=== PATIENT | male | born 1945 | race Caucasian/White ===

== ENCOUNTER 2019-11-01 16:03 | Emergency (ER) | payer MEDICARE ==
[2019-11-01 16:20] VITALS: BP 143/94
[2019-11-01] MEDS ORDERED: LISINOP/HCTZ1 TAB PO (16:36)
[2019-11-01] MEDS ORDERED: EXCEDRI2 PO (16:37)
== END 2019-11-01 17:35 | disposition left against medical advice (07) ==
LOC: ED 16:03 → LWOBS 17:35
DX: Z53.21 Procedure and treatment not carried out due to patient leaving prior to being seen by health care provider (principal)

== ENCOUNTER 2021-08-30 14:02 | Observation (INO) | payer MEDICARE ==
[~2021-08-30] VITALS: Ht 175.3 cm; Wt 71.0 kg
[~2021-08-30 14:02] MED LIST: EXCEDRI2 PO; LISINOP/HCTZ1 TAB PO
--- NOTE | 2021-08-30 15:30 | NUR ---
PATIENT TO ROOM VIA WHEELCHAIR BEDSIDE TRIAGE COMPLETED.
--- NOTE | 2021-08-30 16:30 | NUR ---
PT SITTING IN RM AWAITING RESULTS. CALL LIGHT WITHIN REACH.
[2021-08-30 16:34] LABS: HEMATOCRIT 40.9 % (39.0-50.0); HEMOGLOBIN 13.3 g/dl (14.0-18.0); IMMATURE GRANULOCYTES 0.7 % (0.0-5.0); MEAN CELL VOLUME 95.1 fL CALC (80.0-100.0); MEAN CORPUSCULAR HGB 30.9 pG CALC (26.0-32.0); MEAN CORPUSCULAR HGB CONC 32.5 g/dL CAL (32.0-36.0); NEUT# 11.76 thou/uL (1.82-7.42); RED BLOOD COUNT 4.3 mill/uL (4.70-6.10); RED CELL DISTRI WIDTH 11.9 % (11.5-15.5)
[2021-08-30 16:41] LABS: ALBUMIN 4.2 g/dL (3.2-5.0); ALKALINE PHOSPHATASE 121 u/l (38-126); ANION GAP 17 (6-22 (CALC)); BILIRUBIN, TOTAL 0.7 mg/dL (0.0-1.4); BUN 30 mg/dL (8-23); BUN/CREATININE RATIO 23 (12-20 (CALC)); CARBON DIOXIDE 24 mmol/l (22-30); CHLORIDE 100 mmol/l (95-108); CREATININE 1.3 mg/dL (0.7-1.3); GFR 54 ML/MIN (>=60 (CALC)); GFR FOR AFR.AMER. > 60 ML/MIN (>=60 (CALC)); POTASSIUM 2.9 mmol/l (3.5-5.1); SGOT/AST 23 u/l (19-48); SODIUM 138 mmol/l (137-146); TOTAL PROTEIN 7.8 g/dL (6.3-8.2)
--- NOTE | 2021-08-30 17:30 | NUR ---
PT SITTING IN RM AWAITING RESULTS AT THIS TIME. NO NEEDS OR CONCERNS. CALL LIGHT WITHIN REACH.
--- NOTE | 2021-08-30 18:30 | NUR ---
PT SITTING IN RM AWAITING RESULTS. CALL LIGHT WITHIN REACH.
--- NOTE | 2021-08-30 19:30 | NUR ---
PT SITTING IN RM AWAITING ADMISSION AT THIS TIME. CALL LIGHT WITHIN REACH.
[2021-08-30] MEDS ORDERED: SIMVASTATIN5 MG PO (19:42)
[2021-08-30] MEDS ORDERED: ASPIRIN 81 LOW81 MG (19:42)
[2021-08-30] MEDS ORDERED: PERCOCET 5/321 COMBO PO (19:43)
--- NOTE | 2021-08-30 20:10 | NUR ---
REPORT GIVEN TO EZEQUIEL MENEZES AT THIS TIME FOR ADMISSION. ALEXANDRA HALE WILL BE TAKING PT TO THE FLOOR.
[2021-08-30 21:04] VITALS: BP 117/71
--- NOTE | 2021-08-30 21:04 | NUR ---
PT ARRIVED TO UNIT VIA WHEELCHAIR ACCOMPAINED BY ER STAFF. PT ALERT AND ORIENTED X4. ADMITTED WITH CELLULITIS TO RIGHT HAND, HAND IS RED, WARM AND PAINFUL TO TOUCH, HAS EDEMA NOTED. PT STATES HE HAD SIMILAR SYMPTOMS 2 YEARS AGO AFTER SPIDER BITE ON OTHER HAND. 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 IV SITE INFILTRATED, WILL START A NEW ONE. PT C/O PAIN IN RIGHT HAND 5/10, ELEVATED HAND ON PILLOWS, WILL MEDICATE FOR PAIN. FROZEN DINNER PROVIDED. PT ORIENTED TO ROOM AND CALL LIGHT SYSTEM. DISCUSSED POC AND SAFETY PRECAUTIONS. PT VERBALIZED UNDERSTANDING. CALL LIGHT WITHIN REACH. WILL CONTINUE TO MONITOR.
--- NOTE | 2021-08-30 21:05 | NUR ---
PT TO FLOOR VIA W/C WITH MONITOR AND IV NS INFUSING/ROCEPHIN STARTED. UPON ARRIVAL TO FLOOR PT C/O LEFT AC PAIN...SITE SWOLLEN TENDER. NURSE EZEQUIEL NOTIFIED AND IV STOPPED. PRO-CALCITONIN ELEVATED AND WAS CALLED TO ME A CRITICAL I WAS LEAVING WITH THE PT. CRIT RELAYED TO EZEQUIEL. PT ASSISTED TO BED AND MADE COMFORTABLE.
--- NOTE | 2021-08-30 21:20 | NUR ---
NURSING LUNCH COUNTER MANAGER NOTIFIED TO GET MAGNESIUM TO TAKE TO FLOOR
[2021-08-31] VITALS: BP 121/65
--- NOTE | 2021-08-31 00:17 | NUR ---
PT C/O PAIN IN RIGHT HAND. MEDICATED WITH PRN ULTRAM AT THIS TIME. PT DENIES ANY OTHER CURRENT WANTS OR NEEDS. CALL LIGHT WITHIN REACH. WILL CONTINUE TO MONITOR.
--- NOTE | 2021-08-31 03:49 | NUR ---
PT C/O RIGHT HAND PAIN. MEDICATED WITH PRN LORTAB. PT HAS HAND ELEVATED ON PILLOWS. IVF INFUSING WITHOUT DIFFICULTY. PT DENIES ANY OTHER CURRENT WANTS OR NEEDS. CALL LIGHT WITHIN REACH. WILL CONTINUE TO MONITOR.
[2021-08-31 04:00] VITALS: BP 122/58
[2021-08-31 05:51] LABS: HEMATOCRIT 35.4 % (39.0-50.0); HEMOGLOBIN 11.5 g/dl (14.0-18.0); MEAN CELL VOLUME 95.4 fL CALC (80.0-100.0); MEAN CORPUSCULAR HGB CONC 32.5 g/dL CAL (32.0-36.0); RED BLOOD COUNT 3.71 mill/uL (4.70-6.10); RED CELL DISTRI WIDTH 11.7 % (11.5-15.5)
[2021-08-31 06:12] LABS: ANION GAP 16 (6-22 (CALC)); BUN 26 mg/dL (8-23); BUN/CREATININE RATIO 23 (12-20 (CALC)); CARBON DIOXIDE 21 mmol/l (22-30); CHLORIDE 105 mmol/l (95-108); CREATININE 1.1 mg/dL (0.7-1.3); GFR > 60 ML/MIN (>=60 (CALC)); GFR FOR AFR.AMER. > 60 ML/MIN (>=60 (CALC)); MAGNESIUM 2.1 mg/dL (1.6-2.3); POTASSIUM 3.4 mmol/l (3.5-5.1); SODIUM 139 mmol/l (137-146)
[2021-08-31 08:08] VITALS: BP 109/64
--- NOTE | 2021-08-31 08:10 | NUR ---
ASSISTED PATIENT TO SIT IN THE RECLINER AND PATIENT WAS UNSTEADY ON FEET. ASSESSMENT DONE. PATIENT STATED PAIN IN RIGHT ARM. RIGHT ARM IS HOT TO THE TOUCH AND REDNESS NOTED. MEDICATED PATIENT WITH ULTRAM. TELE IN PLACE. PATIENT DENIES ANY OTHER NEEDS AT THIS TIME. SAFETY PRECAUTIONS REINFORCED AND CALL LIGHT IN REACH.
--- NOTE | 2021-08-31 10:29 | NUR ---
S: ERIC ROBERTO is a 76 M who presents with cellulitis of right hand. He has a history of hypertension. All medications in patient's chart were reviewed. O: VS: BP 109/64 mmHG, P 83 beats/minute, RR 20 breaths/minute, T 98.4F W 71 kg, HT 69 inches, Scr=1.1 mg/dL, CrCl= 58.3 ml/min> A: Blood culture from 08/30/2021 is pending. P: Patient is on Rocephin 1 G IV Q24H. Start Vancomycin 750 MG IV BID @ 0900. Check trough 09/01/2021 @ 0830. Goal for trough is 10-15 mcg/mL. Pharmacy will follow and or advise on antibiotics use as needed.
[2021-08-31 10:30] VITALS: BP 103/56
--- NOTE | 2021-08-31 12:00 | NUR ---
PATIENT IS SITTING IN THE RECLINER WITH RIGHT ARM ELEVATED. PATIENT DENIES NEEDS AT THIS TIME. CALL LIGHT IN REACH.
[2021-08-31 15:51] VITALS: BP 124/61
--- NOTE | 2021-08-31 16:00 | NUR ---
PATIENT STATED PAIN IN RIGHT ARM. MEDICATED PATIENT WITH OXYCODONE. PATIENT DENIES ANY OTHER NEEDS AT THIS TIME. CALL LIGHT IN REACH.
[2021-08-31 19:00] VITALS: BP 104/57
--- NOTE | 2021-08-31 20:19 | NUR ---
190-REPORT RECEIVED FROM DAYSHIFT NURSE VIA SBAR FORMAT; FOUND PATIENT RESTING IN BED, WATCHING TV, A&OX4, C/O PAIN TO RIGHT HAND, SWOLLEN, HOT TO TOUCH, EDUCATED ABOUT MED SCHEDULE, VOICES UNDERSTANDING, NO S/S OF DISTRESS NOTED, ENCOURAGED TO CALL IF NEEDED, VERBALIZES UNDERSTANDING, BSC AT REACH AND ALL NEEDED SUPPLIES AT BEDSIDE. 2020-MEDICATED WITH TYLENOL FOR PAIN TO RIGHT HAND, OXYCODONE NOT DUE YET UNTIL 2199. WILL FOLLOW UP WITH REASSESSMENT. PT STATES HAD X10 BOUTS OF DIARRHEA TODAY, EDUCATED ABOUT ABX SIDE EFFECTS, FLORASTOR GIVEN, WILL FOLLOW UP WITH REASSESSMENT, CALL RODRIGUEZ AT REACH AND BSC. ENCOURAGED TO CALL FOR ASSISTANCE, VOICES UNDERSTANDING. NO OTHER NEEDS VOICED.
--- NOTE | 2021-08-31 22:10 | NUR ---
MEDICATED WITH OXYCODONE FOR PAIN TO RIGHT HAND, RATES IT AT 10/10, FACIAL GRIMACE NOTED, ELEVATED R HAND ON A PILLOW, WILL FOLLOW UP CLOSELY, CALL RODRIGUEZ AT REACH.
[2021-09-01] VITALS: BP 91/54
--- NOTE | 2021-09-01 02:36 | NUR ---
PATIENT IS RESTING IN BED, QUIETLY, NO PAIN OR NEEDS REPORTED, CALL RODRIGUEZ AT REACH.
[2021-09-01 04:00] VITALS: BP 110/51
--- NOTE | 2021-09-01 04:25 | NUR ---
pt c/o right hand pain, rates it at 10/10, facial grimacing noted, elevated on a pillow, cold compressor applied with a skin barrier. Patient states, "this is the worst pain I've had." will follow up with pain reassessment.
--- NOTE | 2021-09-01 04:30 | NUR ---
Medicated per MD orders, will follow up with pain reassessment.
--- NOTE | 2021-09-01 04:39 | NUR ---
PT REMOVED COLD COMPRESSOR, STATES "IT HURTS MORE WITH IT."
--- NOTE | 2021-09-01 05:17 | NUR ---
PATIENT STATES "PAIN IS A LITTLE BIT BETTER." RATES IT AT 8/10, WAS 10/10, ACHING/THROBBING.
--- NOTE | 2021-09-01 06:19 | NUR ---
PT C/O RIGHT HAND PAIN, 8/10 THROBBING, SHARP, MEDICATED WITH TYLENOL PER MD ORDERS, ASSISTED TO BSC FOR A BM, PATIENT CONTINUED HAVING FREQUENTS BOUTS OF DIARRHEA ALL NIGHT, WATERY, GREEN. PROVIDED SOME PRIVACEY BY STEPPING OUT OF THE ROOM WHILE IN BSC, WEAKNESS NOTED WHEN ASSISTED PT TO BRP, C/O FEELING WEAK, UNSTEADY GAIT NOTED, SAFETY MEASURES REIFORCED, CALL RODRIGUEZ AT REACH, PROVIDED SOME PRIVACY BY STEPPING OUT OF THE ROOM. ASSISTED BACK TO BED. TOLERATED ACTIVITY WELL, CALL RODRIGUEZ AT REACH.
[2021-09-01 06:55] LABS: MEAN CORPUSCULAR HGB 31.3 pG CALC (26.0-32.0); MEAN CORPUSCULAR HGB CONC 33.3 g/dL CAL (32.0-36.0); RED BLOOD COUNT 3.51 mill/uL (4.70-6.10); RED CELL DISTRI WIDTH 11.9 % (11.5-15.5)
--- NOTE | 2021-09-01 07:00 | NUR ---
SHIFT CHANGE REPORT, PT AWAKE ALERT AND ORIENTED RESTING IN BED, C/O THROBING PAIN TO R.HAND @ 610, IVF INFUSING, TELE MONITOR IN PLACE, CALL RODRIGUEZ IN REACH AND BED LOCKED IN LOWEST POSITION.
[2021-09-01 07:09] LABS: ANION GAP 15 (6-22 (CALC)); BUN 23 mg/dL (8-23); BUN/CREATININE RATIO 21 (12-20 (CALC)); CARBON DIOXIDE 20 mmol/l (22-30); CHLORIDE 109 mmol/l (95-108); CREATININE 1.1 mg/dL (0.7-1.3); GFR > 60 ML/MIN (>=60 (CALC)); GFR FOR AFR.AMER. > 60 ML/MIN (>=60 (CALC)); MAGNESIUM 1.7 mg/dL (1.6-2.3); POTASSIUM 3.4 mmol/l (3.5-5.1); SODIUM 140 mmol/l (137-146)
[2021-09-01 07:59] VITALS: BP 133/62
--- NOTE | 2021-09-01 10:29 | NUR ---
S: ERIC ROBERTO is a 76 M who presents with cellulitis of right hand. He has a history of hypertension and hyperlipidemia. All medications in patient's chart were reviewed. O: VS: BP 133/62 mmHg, P 68 bpm, RR 18 bpm, T 98.2 F W 71 kg, HT 175.25 cm, Scr= 1.1 mg/dL, CrCl= 58.3 ml/min Vancomycin trough 09/01@0852 = 13 A: Preliminary Blood cultures from 08/30/21 shows no growth at 24 hours. P: Patient is on Rocephin 1g IV Q24H. Continue Vancomycin 750 mg IV BID. Vancomycin trough is to be redrawn on 09/02/21 @ 2030 Vancomycin goal trough is between 10-15 mcg/ml. Pharmacy will follow and or advise on antibiotics use as needed.
[2021-09-01 10:39] VITALS: BP 114/64
--- NOTE | 2021-09-01 12:20 | NUR ---
RESTING N BED AT THIS TIME HAVING MEAL, NO NEW COMPLAIN, SPOUSE VISITING, ALL NEEDS ADDRESSED, WARM COMPRESS OFFERED AND APPLIED TO TANG HUGO.
[2021-09-01 15:59] VITALS: BP 118/66
--- NOTE | 2021-09-01 16:16 | NUR ---
RESTING IN BED, NO NEW COMPLAINS, DR BONILLA CONSULTED VIA VIRTUAL AND AGREES WITH CURRENT PLAN, PT STATES UNDERSTANDING, PAIN CONTROLLED WITH ANALGESICS, WILL CONTINUE TO MONITOR.
[2021-09-01 19:00] VITALS: BP 127/70
--- NOTE | 2021-09-01 20:00 | NUR ---
PATIENT RESTING IN BED AT THIS TIME WATCHING TV. AWAKE ALERT AND ORIENTEDX 3. PATIENT WITH RIGHT HAND ELEVATED ON PILLOWS. SLIGHT SWELLING IS NOTED AND PATIENT STATES INCREASED MOVEMENT SINCE THE SWELLING IS SUBSIDING. IVF NS PATENT AND INFUSING VIA LEFT FOREARM SITE AT 75CC/HR. SITE REMAINS HEALTHY AT THIS TIME. SAFETY PRECAUTIONS REINFORCED. CALL LIGHT IN REACH. WILL CONT TO MONITOR.
--- NOTE | 2021-09-01 22:45 | NUR ---
PATIENT RESTING IN BED AT THIS TIME WATCHING TV. RIGHT HAND IS ELEVATED ON PILLOW. IVF NS PATENT AND INFUSING VIA LEFT FOREARM SITE AT 75CC/HR. MEDICATED FOR PAIN WITH PERCOCET 5/325MG PO FOR 7/10 ON PAIN SCALE RIGHT H AND AND KNEES. SAFETY PRECAUTIONS REINFORCED. CALL LIGHT IN REACH. WILL CONT TO MONITOR.
--- NOTE | 2021-09-02 00:54 | NUR ---
PATIENT SITTING U P IN THE BED WITH EYES CLOSED. RIGHT H AND ELEVATED ON PILLOWS. RESPS ARE EVEN AND UNLABORED. IVF PATENT AND INFUSING VIA LEFT FOREARM SITE AT 75CC/HR. CALL LIGHT IN REACH. WILL CONT TO MONITOR.
--- NOTE | 2021-09-02 04:42 | NUR ---
PATIENT RESTING IN BED WITH RIGHT HAND ELEVATED ON PILLOW. LAB WORK WAS DRAWN. IVF NS PATENT AND INFUSING VIA LEFT FOREARM. CALL LIGHT IN REACH.WILL CONT TO MONITOR.
[2021-09-02 06:16] LABS: HEMATOCRIT 33.2 % (39.0-50.0); HEMOGLOBIN 10.8 g/dl (14.0-18.0); MEAN CORPUSCULAR HGB 31.2 pG CALC (26.0-32.0); MEAN CORPUSCULAR HGB CONC 32.5 g/dL CAL (32.0-36.0); RED BLOOD COUNT 3.46 mill/uL (4.70-6.10); RED CELL DISTRI WIDTH 11.9 % (11.5-15.5)
[2021-09-02 06:43] LABS: ANION GAP 12 (6-22 (CALC)); BUN 17 mg/dL (8-23); BUN/CREATININE RATIO 19 (12-20 (CALC)); CARBON DIOXIDE 19 mmol/l (22-30); CHLORIDE 113 mmol/l (95-108); CREATININE 0.9 mg/dL (0.7-1.3); GFR > 60 ML/MIN (>=60 (CALC)); GFR FOR AFR.AMER. > 60 ML/MIN (>=60 (CALC)); POTASSIUM 3.7 mmol/l (3.5-5.1); SODIUM 141 mmol/l (137-146)
--- NOTE | 2021-09-02 07:15 | NUR ---
AM ASSESSMENT COMPLTED WITH Dorian ISABEL RN. WILL CONTINUE TO MONITOR.
--- NOTE | 2021-09-02 09:00 | NUR ---
Patient was screened for physical medicine intervention and it is felt he may benefit from OT consult if medical agrees
[2021-09-02] MEDS ORDERED: PREDNISONE20 MG PO (09:16)
[2021-09-02 10:13] VITALS: BP 119/71
[2021-09-02] MEDS ORDERED: DOXYCYCLINE100 MG PO (10:19)
--- NOTE | 2021-09-02 11:57 | NUR ---
PT SCREENED FOR OT. ERIC ADVISED OF POSSIBLE OP SERVICES TO ASSIST IN REGAINING FUNCTION OF UE SINCE HE IS BEING D/C HOME WITH .
--- NOTE | 2021-09-02 12:52 | NUR ---
Discharge instructions given. Patient verbalizes understanding of same. Discharged in stable condition via Wheelchair to Home with FAMILY . All belongings sent with pt.
== END 2021-09-02 12:52 | disposition home or self-care (01) ==
LOC: ED 14:02 → ED-I 19:01 → MS2 19:13 → ED 19:13 → MS2 19:13
PROVIDERS: Family Medicine; Nurse Practitioner; ADMIT Internal Medicine; ATTEND Internal Medicine
DX: L03.113 Cellulitis of right upper limb (principal); M10.041 Idiopathic gout, right hand; E87.6 Hypokalemia; I10 Essential (primary) hypertension; E78.5 Hyperlipidemia, unspecified; F17.200 Nicotine dependence, unspecified, uncomplicated; Z20.822 Contact with and (suspected) exposure to COVID-19
CPT/HCPCS: J1650; J3370; J3475; Q3014

== ENCOUNTER 2022-10-13 08:13 | Day surgery (SDC) | payer MEDICARE ==
[~2022-10-13] VITALS: Ht 175.3 cm; Wt 72.1 kg
[~2022-10-13 08:13] MED LIST changes: +ALLOPURINOL300 MG PO; +ASPIRIN 81 LOW81 MG; +DOXYCYCLINE100 MG PO; +PERCOCET 5/321 COMBO PO; +PERCOCET1 TA4 PO; +PREDNISONE20 MG PO; +SIMVASTATIN5 MG PO; +ZESTRIL10 M1 PO
[2022-10-13 11:02] VITALS: BP 147/75
== END 2022-10-13 11:25 | disposition home or self-care (01) ==
LOC: ORM 08:13
PROVIDERS: ATTEND Surgery
PROC: 0WQF0ZZ Repair Abdominal Wall, Open Approach (ICD-10-PCS; principal; 2022-10-13)
DX: K42.9 Umbilical hernia without obstruction or gangrene (principal); I10 Essential (primary) hypertension; F17.200 Nicotine dependence, unspecified, uncomplicated
CPT/HCPCS: J0131; J0690

== ENCOUNTER 2024-07-21 18:20 | Emergency (ER) | payer MEDICARE ==
[~2024-07-21] VITALS: Ht 175.3 cm; Wt 65.0 kg
[2024-07-21 18:29] VITALS: BP 186/104
[2024-07-21] MEDS ORDERED: PROTONIX40 M2 PO (18:44)
[2024-07-21] MEDS ORDERED: traMADol HCL 50 MG/TAB PO ONE (18:45)
[2024-07-21 19:05] VITALS: BP 186/104
== END 2024-07-21 19:09 | disposition home or self-care (01) ==
LOC: ED 18:20
DX: T18.128A Food in esophagus causing other injury, initial encounter (principal); K21.9 Gastro-esophageal reflux disease without esophagitis; W44.F3XA Food entering into or through a natural orifice, initial encounter; Z72.0 Tobacco use

== ENCOUNTER 2024-08-16 20:25 | Emergency (ER) | payer MEDICARE ==
[~2024-08-16] VITALS: Ht 175.3 cm; Wt 66.0 kg
[2024-08-16] VITALS (7 sets, daily range): BP systolic 154–205; BP diastolic 95–103
[~2024-08-16 20:25] MED LIST changes: +PROTONIX40 M2 PO
[2024-08-16 20:52] LABS: BASO% 0.5 % (0-3); EOS% 1.4 % (0-8); IMMATURE GRANULOCYTES 0.3 % (0.0-5.0); LYMPH% 25.3 % (15-41); MEAN CELL VOLUME 99.3 fL CALC (80.0-100.0); MEAN CORPUSCULAR HGB 31.9 pG CALC (26.0-32.0); MEAN CORPUSCULAR HGB CONC 32.1 g/dL CAL (32.0-36.0); MONO% 10.3 % (2-13); NEUT# 6.92 thou/uL (1.82-7.42); NEUT% 62.2 % (42-76); RED BLOOD COUNT 4.33 mill/uL (4.70-6.10)
[2024-08-16] MEDS ORDERED: SIMVASTATIN5 MG PO (20:57)
[2024-08-16 21:01] LABS: HEMOGLOBIN 13.8 g/dl (14.0-18.0)
[2024-08-16 21:09] LABS: ALBUMIN 4.3 g/dL (3.2-5.0); CREATININE 1.1 mg/dL (0.7-1.3); TOTAL PROTEIN 6.8 g/dL (6.3-8.2)
[2024-08-16 21:20] LABS: BILIRUBIN, TOTAL 0.4 mg/dL (0.2-1.3)
[2024-08-16] MEDS ORDERED: POTASSIUM CHLORIDE 20 MEQ/TAB PO ONE (21:50)
[2024-08-16 22:09] LABS: URINE BILIRUBIN - DIPSTICK Negative (NEGATIVE); URINE BLOOD DIPSTICK Small (NEGATIVE); URINE GLUCOSE - DIPSTICK Negative (NEGATIVE); URINE KETONE Negative (NEGATIVE); URINE LEUK ESTERASE Negative (NEGATIVE); URINE NITRITE - DIPSTICK Negative (Negative); URINE PROTEIN - DIPSTICK 100 mg/dL (NEG-TRACE); URINE SPECIFIC GRAVITY 1.015; URINE UROBILINOGEN - DIPSTICK 0.2 E.U./dL (0.2)
[2024-08-16 22:15] LABS: URINE COLOR Yellow
[2024-08-16 22:17] LABS: URINE HYALINE CAST RARE lpf (NONE-RARE); URINE RBC 0-2 RBC/hpf (0-5)
[2024-08-16] MEDS ORDERED: cloNIDine HCL 0.1 MG/TAB PO ONE ×2 (22:45→23:55)
[2024-08-16] MEDS ORDERED: CLONIDINE0.1 MG PO (23:53)
[2024-08-17 00:01] VITALS: BP 145/89
[2024-08-17 00:13] VITALS: BP 145/89
== END 2024-08-17 00:16 | disposition home or self-care (01) ==
LOC: ED 20:25
PROVIDERS: Family Medicine
DX: I10 Essential (primary) hypertension (principal); E87.6 Hypokalemia; Z72.0 Tobacco use